=== PATIENT | female | born 1990 | race American Indian/Alaskan Native ===

== ENCOUNTER 2018-11-09 13:02 | Emergency (ER) | payer OTHER ==
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
[2018-11-09 13:34] VITALS: BP 123/79
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
== END 2018-11-09 14:45 | disposition left against medical advice (07) ==
LOC: ED 13:02
DX: M54.9 Dorsalgia, unspecified (principal); M54.2 Cervicalgia; Z53.21 Procedure and treatment not carried out due to patient leaving prior to being seen by health care provider
CPT/HCPCS: 72040; 72100